=== PATIENT | male | born 1995 ===

== ENCOUNTER 2019-05-24 13:13 | Outpatient (REF) | payer MEDICARE, SELFPAY ==
[2019-05-24 21:43] LABS: Abs Immature Grans 0.06 k/cumm (0.0-0.09); Absolute Basophil Count 0.06 k/cumm (0.0-0.2); Absolute Eosinophil Count 0.13 k/cumm (0.0-0.7); Absolute Lymphocyte Count 2.28 k/cumm (1.2-3.4); Absolute Neutrophil Count 6.55 k/cumm (1.2-6.7); Basophils % 0.6; Eosinophils % 1.3; HCT 45.5 % (40.0-50.0); HGB 15.9 g/dL (13.5-17.5); Immature Grans % 0.6 %; Lymphocytes % 23.1; Mean Corp. HGB Concentration 34.9 g/dL (32.0-36.0); Mean Corpuscular Hemoglobin 30.3 pg (27.0-33.0); Mean Corpuscular Volume 86.7 fL (80-95); Mean Platelet Volume 10.6 fL (8.0-11.0); Monocytes % 8.1; Neutrophils % 66.3; Platelet Count 272 x1000/uL (130-400); RBC 5.25 m/cumm (4.50-6.00); RBC Distribution Width 12.9 % (11.8-14.1); White Blood Cell Count 9.88 k/cumm (4.4-10.8)
[2019-05-24 21:53] LABS: ALT 42 U/L (16-63); AST 13 U/L (15-37); Albumin 4.2 g/dL (3.4-5.0); Alkaline Phosphatase 99 U/L (46-116); Anion Gap 8.5 mmol/L (3-11); BUN 12 mg/dL (7-18); CO2 28.5 mmol/L (21.0-32.0); CREATININE 0.78 mg/dL (0.70-1.30); Calcium 9.1 mg/dL (8.5-10.1); Chloride 104 mmol/L (98-107); Glucose 82 mg/dL (74-106); Potassium 4.7 mmol/L (3.5-5.1); Sodium 141 mmol/L (136-145); Total Protein 7.8 g/dL (6.4-8.2)
[2019-05-24 22:05] LABS: Bilirubin, Total 0.3 mg/dL (0.2-1.0)
== END 2019-05-24 13:33 ==
LOC: NCHCN 13:13
PROVIDERS: PCP Nurse Practitioner Family; Visit Provider Nurse Practitioner Community Health
DX: F20.9 Schizophrenia, unspecified (principal)
CPT/HCPCS: 80053; 85025

== ENCOUNTER 2020-11-28 11:23 | Outpatient (REF) | payer SELFPAY ==
[2020-11-28 13:20] LABS: Abs Immature Grans 0.04 10^3/uL (0.0-0.06); Absolute Basophil Count 0.07 10^3/uL (0.0-0.2); Absolute Eosinophil Count 0.15 10^3/uL (0.0-0.7); Absolute Lymphocyte Count 1.73 10^3/uL (1.2-3.4); Absolute Monocyte Count 0.66 10^3/uL (0.1-0.8); Absolute Neutrophil Count 7.07 10^3/uL (1.2-6.7); Basophils % 0.7; Eosinophils % 1.5; HCT 47.4 % (40.0-50.0); HGB 16.5 g/dL (13.5-17.5); Immature Grans % 0.4; Lymphocytes % 17.8; MCH 30.5 pg (27.0-33.0); MCHC 34.8 % (32.0-36.0); MCV 87.6 fL (80-95); MPV 11.1 fL (8.0-11.0); Monocytes % 6.8; Neutrophils % 72.8; Nucleated RBC 0 %; Platelet Count 279 10^3/uL (130-400); RBC 5.41 10^6/uL (4.36-5.78); RDW 12.1 % (11.8-14.1); RDW-SD 38.8 fL; WBC 9.72 10^3/uL (4.4-10.8)
[2020-11-28 14:18] LABS: ALT 47 U/L (16-63); AST 19 U/L (15-37); Albumin 4.6 g/dL (3.4-5.0); Alkaline Phosphatase 83 U/L (46-116); Anion Gap 12.3 mmol/L (3-11); BUN 12 mg/dL (7-18); Bilirubin, Total 0.6 mg/dL (0.2-1.0); CO2 23.7 mmol/L (21.0-32.0); CREATININE 0.8 mg/dL (0.70-1.30); Calcium 9.7 mg/dL (8.5-10.1); Chloride 104 mmol/L (98-107); Glucose 89 mg/dL (74-106); Potassium 4.6 mmol/L (3.5-5.1); Sodium 140 mmol/L (136-145); Total Protein 8.2 g/dL (6.4-8.2)
== END 2020-11-28 11:24 | disposition home or self-care (01) ==
LOC: NCHCN 11:23
PROVIDERS: PCP Nurse Practitioner Family; Visit Provider Nurse Practitioner Community Health
DX: Z79.899 Other long term (current) drug therapy (principal)
CPT/HCPCS: 80053; 85025

== ENCOUNTER 2023-08-03 17:35 | Outpatient (REF) | payer MEDICAID, SELFPAY ==
[2023-08-03 21:28] LABS: HCT 43.2 % (40.0-50.0); HGB 15.7 g/dL (13.5-17.5); MCH 31.3 pg (27.0-33.0); MCHC 36.3 % (32.0-36.0); MCV 86 fL (80-95); Platelet Count 274 10^3/uL (130-400); RBC 5.01 10^6/uL (4.36-5.78); RDW 11.9 % (11.8-14.1); RDW-SD 37.6 fL; WBC 12.99 10^3/uL (4.4-10.8)
[2023-08-03 21:56] LABS: Calculated LDL 96 mg/dL (<100); Cholesterol 154 mg/dL (<200); HDL Cholesterol 38 mg/dL (40-60); TSH (W/Ref FT4) 0.85 uIU/mL (0.36-3.74); Triglyceride 100 mg/dL (<150)
[2023-08-03 22:05] LABS: Hemoglobin A1C 5.2 % (<5.7)
[2023-08-03 22:41] LABS: ALT 33 U/L (16-63); AST 24 U/L (15-37); Albumin 4.4 g/dL (3.4-5.0); Alkaline Phosphatase 79 U/L (46-116); Anion Gap 13.1 mmol/L (3-11); BUN 14 mg/dL (7-18); Bilirubin, Total 0.7 mg/dL (0.2-1.0); CO2 22.9 mmol/L (21.0-32.0); CREATININE 0.9 mg/dL (0.70-1.30); Calcium 9.2 mg/dL (8.5-10.1); Chloride 102 mmol/L (98-107); Glucose 104 mg/dL (74-106); Potassium 3.9 mmol/L (3.5-5.1); Sodium 138 mmol/L (136-145); Total Protein 8.3 g/dL (6.4-8.2)
== END 2023-08-03 17:36 | disposition home or self-care (01) ==
LOC: NCHCN 17:35
PROVIDERS: PCP Nurse Practitioner Family; Visit Provider Nurse Practitioner Family
DX: Z51.81 Encounter for therapeutic drug level monitoring (principal); Z79.899 Other long term (current) drug therapy
CPT/HCPCS: 80053; 80061; 85027; 83036; 84146; 84443